=== PATIENT | male | born 1980 | race Caucasian/White ===

== ENCOUNTER → 2016-12-14 | Outpatient (CLI) | payer OTHER ==
[~2016-12-14] VITALS: Ht 180.3 cm; Wt 83.9 kg
[~2016-12-14] MED LIST: Lidocaine 1% Plain 30 ml INJ ONE; Sodium Bicarbonate 8.4% 50ml Inj IV ONE
[2016-12-14 12:01] VITALS: BP 137/89
[2016-12-14 13:15] VITALS: BP 123/74
[2016-12-14 13:27] VITALS: BP 120/81
[2016-12-14 13:45] VITALS: BP 124/73
[2016-12-14 14:00] VITALS: BP 122/73
--- NOTE | 2016-12-14 14:35 | Diagnostic Imaging Report ---
Indication: Elevated liver function tests. Procedure: Informed consent for the procedure was obtained. The risks, benefits, and alternatives to the procedure were discussed with the patient. We were given verbal and written consent to proceed. The abdomen was prepped and draped in a sterile fashion. Lidocaine was administered for local anesthesia. Dermatotomy was made. Using ultrasound guidance an 18-gauge biopsy device was advanced into the liver and a 2 cm core biopsy was performed. This was performed twice. There were no complications. The patient tolerated the procedure well. Impression: Status post successful ultrasound guided, nontargeted biopsy of the liver.
[2016-12-14 15:30] VITALS: BP 126/81
== END | disposition home or self-care (01) ==
LOC: RAD 09:32 → EDSTATUS 10:00
DX: R94.5 Abnormal results of liver function studies (principal)
CPT/HCPCS: 76942